=== PATIENT | male | born 1970 | race Caucasian/White ===

== ENCOUNTER 2025-11-11 12:38 | Emergency (ER) | payer OTHER, SELFPAY ==
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
[2025-11-11 12:58] VITALS: BP 151/92; PULSE 104; RESP 14; TEMP 38.6; O2SAT 93; BMI 33.0
[2025-11-11 14:32] LABS: MANUAL DIFF FLAG NO
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
[2025-11-11 14:36] LABS: Hematocrit 44.2 % (42.0-52.0); Hemoglobin 14.6 g/dl (14.0-18.0); Imm Gran Abs Auto 0.08 X10*3/uL (0.00-0.03); Imm Gran Pct Auto 0.5 % (0.0-0.4); Lymphocytes Absolute Auto 0.6 X10*3/uL (1.2-4.9); Mean Corpuscular HGB Conc 33.0 g/dl (31.0-36.0); Mean Corpuscular Hemoglobin 29.6 pg (27.0-33.0); Mean Corpuscular Volume 89.7 fL (80.0-98.0); NRBC Abs Auto 0.000 X10*3/uL (0.0-0.012); NRBC Pct Auto 0.0 /100WBC (0.0-0.2); Platelet Count 102 X10*3/uL (160-400); Red Blood Count 4.93 X10*6/uL (4.60-5.80); White Blood Count 14.6 X10*3/uL (4.8-10.8)
[2025-11-11 14:59] LABS: Alanine Aminotransferase 14 U/L (0-40); Albumin Level 4.2 g/dL (3.5-5.0); Alkaline Phosphatase 87 U/L (39-117); Anion Gap 13 (12-20); Aspartate Amino Transferase 38 U/L (5-37); Blood Urea Nitrogen 14 mg/dL (9-16); Calcium 8.8 mg/dL (8.4-10.2); Carbon Dioxide 24 mmol/L (22-29); Chloride 101 mmol/L (96-108); Creatinine Clr Calc Pharmacy 132.7; Estimated Glomerular Filt Rate > 60; Magnesium 1.8 mg/dL (1.6-2.6); Potassium 4.0 mmol/L (3.3-5.1); Sodium 134 mmol/L (135-145); Total Protein 8.1 g/dL (6.5-8.0)
--- NOTE | 2025-11-11 15:23 | PC.NURSE ---
Pt is diaphoretic. States he had positive TB test in gtht past and never need medication. Is adamant that he leaves. Has no explanation for diaphoresis.
[2025-11-11 15:25] VITALS: BP 141/78; PULSE 80; RESP 18; TEMP 37.6; O2SAT 97
--- NOTE | 2025-11-11 15:26 | PC.NURSE ---
Pt denies polysubstabce use and recieved am methadone. Pupils 3mm and reaCTIVE.
[2025-11-11 16:04] VITALS: BP 141/78; PULSE 80; RESP 18; TEMP 37.6; O2SAT 97
--- NOTE | 2025-11-16 15:16 | PC.NURSE ---
Acetaminophen and 1LNS were finished before pt left department.
== END 2025-11-11 16:06 | disposition left against medical advice (07) ==
PROVIDERS: Physician Assistant Medical; Emergency Provider Emergency Medicine Emergency Medical Services
DX: J18.8 Other pneumonia, unspecified organism (principal); M54.2 Cervicalgia; R51.9 Headache, unspecified; M25.511 Pain in right shoulder; V49.49XA Driver injured in collision with other motor vehicles in traffic accident, initial encounter; Y93.9 Activity, unspecified; Y92.414 Local residential or business street as the place of occurrence of the external cause
CPT/HCPCS: 36415; 70450; 71046; 72125; 73030; 80053; 83735; 85025; 85652; 86140; 96374; 99283; 99284; J0131

== ENCOUNTER → 2025-11-11 13:49 | Outpatient (BNV) | payer MEDICARE, MEDICAID, SELFPAY | PROVIDERS: Emergency Provider Emergency Medicine Emergency Medical Services; Visit Provider Radiology Diagnostic Radiology | DX: M54.2 Cervicalgia (principal); R51.9 Headache, unspecified; G93.89 Other specified disorders of brain; J32.0 Chronic maxillary sinusitis; M25.511 Pain in right shoulder; M19.011 Primary osteoarthritis, right shoulder; V89.2XXA Person injured in unspecified motor-vehicle accident, traffic, initial encounter; Z04.3 Encounter for examination and observation following other accident | CPT/HCPCS: 71046 ==